=== PATIENT | female | born 1990 | race American Indian/Alaskan Native ===

== ENCOUNTER 2017-11-19 10:26 | Emergency (ER) | payer MEDICAID ==
[2017-11-19 18:46] VITALS: BP 113/69; PULSE 76
--- NOTE | 2017-11-20 09:13 | OBHP ---
Datetime: 11/19/2017 11:00 IP Adm Impression: Term, intrauterine IP Admit Plan: Discharge home IP Admit Plan Other: cerclage removal Admit Comment, IP Provider: 27 yo ega 37.3 presents to [facility] for cerclage removal, which was pawel li at 22 weeks +: fm denies: ctx, lof, vb, CP/SOB/N/V/dysuria pnc: Dr. 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 Cerclage x2 removed with sterile techniques 27 yo IUP 37.3 - cerclage removed -ptl precautions given d/c home case dw Dr. Ashely Ferris MD PGY1 Addendum: I saw on exam patient presentation. Cerclage removed via sterile field under direct visualization. Patient tolerated cerclage removal. Cerclage site hemostatic following removal. Patient observed at labor and delivery approximately 1 hour after removal. Patient without complaints. Both maternal well -being and well-being reassuring. Patient discharged home with labor precautions. Pelvic Type - PN: Adequate Extremities - PN: Normal Abdomen - PN: Normal Back - PN: Normal Breast - PN: Not Done Lungs - PN: Normal Heart - PN: Normal Thyroid - PN: Not Done Neurologic - PN: Normal HEENT - PN: Normal General - PN: Normal FHR - Baseline A Provider: 140 Vital Signs Provider: Reviewed; Within Normal Limits IP Chief Complaint: Other NICHD Variability Prov Fetus A: Moderate 6-25bpm NICHD Accel Fetus A IP Provider: [id number] FHR Category Provider Fetus A: Category I NICHD Decel Fetus A IP Provider: None Genitourinary Exam: Normal DTRs - PN: Not Done
== END 2017-11-19 13:15 | disposition home or self-care (01) ==
LOC: H.EROB2 10:26
DX: O26.873 Cervical shortening, third trimester (principal); Z3A.37 37 weeks gestation of pregnancy

== ENCOUNTER 2017-12-09 21:01 | Inpatient (IN) | payer MEDICAID, OTHER ==
[2017-12-09 21:23] VITALS: BMI 45.3
[2017-12-09] MEDS ORDERED: Lactated Ringer's 1,000 ML IV PRN (21:37)
[2017-12-09] MEDS: Lactated Ringer's 1,000 ML IV SCH (22:15)
[2017-12-09 22:52] LABS: BASO % 0.2 % (0.0-2.0); EOS % 0.6 % (0.0-4.0); HEMOGLOBIN 12.3 g/dL (12.0-16.0); LYMPH # 1.7 K/uL (1.0-4.3); LYMPH % 24.5 % (20.0-40.0); MEAN CELL VOLUME 93.1 fl (81.0-99.0); MEAN CORPUSCULAR HGB CONC 33.3 g/dL (33.0-37.0); MEAN PLATELET VOLUME 8.2 fl (7.2-11.7); MONO # 0.5 K/uL (0.0-0.8); MONO % 7.5 % (0.0-10.0); NEUT # 4.7 K/uL (1.8-7.0); NEUT % 67.2 % (50.0-75.0); NRBC % 0.1 % (0.0-0.0); RBC 3.97 Mil/uL (3.80-5.20); RED CELL DISTRIBUTION WIDTH 13.1 % (11.5-14.5)
[2017-12-10] MEDS: Lactated Ringer's 1,000 ML IV SCH ×3 (06:14→18:30)
[2017-12-10] MEDS ORDERED: Nalbuphine 20 mg/ml Inj (1 ml) IVP PRN (18:35)
--- NOTE | 2017-12-10 23:51 | OBPN ---
Datetime: 12/10/2017 23:48 IP Progress Impression: Reassuring heart rate IP Progress Plan: Continue present management; Induction Contraction Comments Provider: Occasional FHR - Baseline A Provider: 130s IP Progress Note Comment: Continue induction of by mouth Cytotec. Discussed plan with patient AND qu estions answered. Maternal well-being and well-being reassuring at this time. Vital Signs Provider: Reviewed; Within Normal Limits NICHD Accel Fetus A IP Provider: [id number] FHR Category Provider Fetus A: Category I NICHD Variability Prov Fetus A: Moderate 6-25bpm Dilatation, Provider: FT Effacement, Provider: 50 Station, Provider: -3 NICHD Decel Fetus A IP Provider: None
[2017-12-11] MEDS: Lactated Ringer's 1,000 ML IV SCH ×2 (03:23→20:03)
[2017-12-11] MEDS ORDERED: Oxytocin 30 UNITS in Sodium Chloride 0.9% 500 ML IV ONE (12:34)
[2017-12-11] MEDS ORDERED: ceFAZolin IV 2 gm in Dextrose 2 GM/50 ML BAG IVPB ONE (12:37)
--- NOTE | 2017-12-11 12:52 | OBPN ---
Datetime: 12/11/2017 12:46 IP Progress Impression: Reassuring heart rate IP Informed Consent Obtain: Section Delivery; Risks, Benefits and Alternatives Discussed IP Procedures: Sterile Vag Exam IP Progress Plan: Deliver- Section Contraction Comments Provider: irreg FHR - Baseline A Provider: 130s-140s IP Progress Note Comment: Complaints. Patient without any progress despite Cervidil as well as multi ple doses of by mouth Cytotec. Discussed options with patient including continued induction with IV P itocin. Patient opting for delivery at this time due to failed induction of labor. Discusse d with patient risks, benefits, alternatives of surgery. All patient questions answered. Vital Signs Provider: Reviewed; Within Normal Limits NICHD Accel Fetus A IP Provider: [id number] FHR Category Provider Fetus A: Category I NICHD Variability Prov Fetus A: Moderate 6-25bpm Dilatation, Provider: FT Effacement, Provider: 25 Station, Provider: -3 NICHD Decel Fetus A IP Provider: None
[2017-12-11] MEDS ORDERED: ePHEDrine 50 mg/ml Inj ONE (13:08)
[2017-12-11] MEDS ORDERED: Morphine 1 mg/ml preservative-free Inj(Duramorph) ONE (13:08)
[2017-12-11] MEDS ORDERED: Phenylephrine 10 mg/ml Inj ONE (13:08)
[2017-12-11] MEDS ORDERED: Oxycodone/Acetaminophen 5/325 mg Tab PO PRN (17:11)
[2017-12-11] MEDS: Simethicone 80 mg Chewtab PO SCH (22:54)
--- NOTE | 2017-12-11 23:55 | OP ---
PROCEDURE DATE: 12/11/2017 PREOPERATIVE DIAGNOSIS: Failed induction of labor. POSTOPERATIVE DIAGNOSES: Failed induction of labor plus left ovarian dermoid cyst. OPERATION PERFORMED: Primary low-flap transverse section via Pfannenstiel incision, right ovarian cystectomy. OPERATIVE FINDINGS: Viable female with Apgars of 9 and 9 at 1 and 5 minutes respectively. Normal uterus, normal tubes bilaterally, normal left ovary, and right ovary with approximately 5 to 6 cm dermoid cyst. SURGEON: Harsh Lund MD LIQUOR MERCHANT: John Hernandez MD. Dr. Hernandez was present from the beginning of the procedure to the end of procedure. Dr. Hernandez was integral in exposing the surgical field, controlling intraoperative bleeding, and manual delivery of the . TYPE OF ANESTHESIA: Spinal. ANESTHESIA ADMINISTERED BY: John Goyal MD COMPLICATIONS: None. ESTIMATED BLOOD LOSS: 800 mL. FLUIDS: 2500 mL lactated Ringer's. URINE OUTPUT: 200 mL of clear urine at the end of procedure. DESCRIPTION OF PROCEDURE: The patient was taken to the operating room where spinal anesthesia was found to be adequate. The patient was prepped and draped in normal sterile fashion in the dorsal supine position with leftward tilt. A Pfannenstiel skin incision was made with a scalpel. This was carried down through to the underlying layer of fascia with the scalpel. Midline defect was made in the fascial layer with a scalpel. The fascial incision was then extended bilaterally sharply with curved Denson scissors. The fascial layer was from the underlying rectus muscles both bluntly and sharply with curved Denson scissors. The peritoneum was then identified, tented up with Aurora clamps x2, and entered sharply with Metzenbaum scissors. This peritoneal incision was then extended superiorly and inferiorly with good visualization of the urinary bladder. Bladder blade was inserted into the abdomen. The vesicouterine peritoneum was then identified, tented up with Aurora clamps x2, and entered sharply with Metzenbaum scissors. This peritoneal incision was then extended bilaterally with Metzenbaum scissors. The bladder flap was created digitally. The Alma retractors were placed over the urinary bladder. The uterus was incised with scalpel. The uterine incision was extended bilaterally bluntly. The 's head was delivered atraumatically. Nose and mouth were suctioned with bulb suction. Nuchal cord x2 reduced. True knot was observed in the umbilical cord. The cord was clamped and cut. The infant was handed off to awaiting assembler knife. The placenta was removed manually. The uterus was cleared of all clots and debris. The uterine incision was repaired with 0 Vicryl in a running, locked fashion. A second layer of the same suture was used to imbricate the first and to obtain an excellent hemostasis. Reinspection of the uterine incision proved excellent hemostasis. The abdomen and pelvis were irrigated with copious amounts of warm normal saline. A 5 to 6 cm cyst was seen on the right ovary. An approximately 4 cm incision was placed on the ovarian surface with the scalpel. The ovarian cyst was removed bluntly and sharply from the ovary with Metzenbaum scissors. The ovarian cyst was removed intact. After removal of the ovarian cyst, the ovarian tissue was imbricated and suture ligated with 2-0 chromic. After suture ligating right ovary, the ovary was found to be hemostatic. Reinspection of the right ovary and uterine incision proved hemostasis. All instruments were removed from the patient. The peritoneal layer was closed with a running stitch of 2-0 chromic. The rectus muscles were reapproximated with a running stitch of 2-0 chromic. The fascial layer was closed with a running stitch of 0 Vicryl. Subcutaneous tissue was closed with a running stitch of 3-0 plain. The skin was closed with a subcutaneous stitch of 3-0 Vicryl. The patient tolerated the procedure well. All sponge count, lap count, and needle counts were correct x2. The patient was given 3 g of Ancef just prior to the beginning of the procedure. There were no complications. The patient was taken to the recovery room in awake and stable condition. Harsh Lund MD TIFFANY
[2017-12-12] MEDS: Lactated Ringer's 1,000 ML IV SCH (03:48)
[2017-12-12 07:24] LABS: HEMOGLOBIN 10.7 g/dL (12.0-16.0); MEAN CELL VOLUME 93.1 fl (81.0-99.0); MEAN CORPUSCULAR HEMOGLOBIN 32.3 pg (27.0-31.0); MEAN CORPUSCULAR HGB CONC 34.7 g/dL (33.0-37.0); RBC 3.3 Mil/uL (3.80-5.20); RED CELL DISTRIBUTION WIDTH 13.1 % (11.5-14.5); WHITE BLOOD COUNT 10.1 K/uL (4.8-10.8)
[2017-12-12] MEDS: Simethicone 80 mg Chewtab PO SCH ×3 (09:54→19:54)
[2017-12-13] MEDS: Oxycodone/Acetaminophen 5/325 mg Tab PO PRN ×3 (02:13→16:44)
[2017-12-13] MEDS: Simethicone 80 mg Chewtab PO SCH ×4 (05:24→22:00)
--- NOTE | 2017-12-13 08:00 | OBPPN ---
Datetime: 12/13/2017 07:55 PP Pain Prov: Within normal limits PP Nausea Prov: Denies PP Flatus Prov: Yes PP BM Prov: No PP Abdomen/Uterus Prov: Normal PP Lochia Prov: Normal PP Extremities Prov: Normal PP C/S Incision Prov: Normal PP Progress Prov: Normal PP Comments Phys Exam Prov: Incision intact w/ steri strips PP Impression Prov: Normal progression PP Plan Prov: Continue present management PP Progress Note Prov: POD 2 s/p c/s for failed induction for post-dates Continue current management Vital Signs Provider PP: Reviewed; Within Normal Limits
[2017-12-14] MEDS: Oxycodone/Acetaminophen 5/325 mg Tab PO PRN ×2 (04:42→08:39)
[2017-12-14] MEDS: Simethicone 80 mg Chewtab PO SCH ×2 (04:43→10:00)
--- NOTE | 2017-12-14 11:08 | OBDCSUM ---
Datetime: 12/14/2017 11:06 Discharged to, Provider: Home Follow up at, Provider: OB Discharge Diagnosis, Provider: Term Delivered Discharge Time: 12/14/2017 11:06 Follow up in weeks, Provider: 1 wk, 6 wks
--- NOTE | 2017-12-14 11:09 | OBPPN ---
Datetime: 12/14/2017 11:04 PP Pain Prov: Within normal limits PP Nausea Prov: Denies PP Flatus Prov: Yes PP Breasts Prov: Normal PP Heart Prov: Normal PP Lungs Prov: Normal PP Abdomen/Uterus Prov: Normal PP Lochia Prov: Normal PP Vulva/Perineum Prov: Normal PP CVA Tenderness Prov: Normal PP Extremities Prov: Normal PP Impression Prov: Normal progression PP Plan Prov: Discharge PP Progress Note Prov: Patient denies CP, no SOB, n/v, tolerating PO diet, ambulating/voiding well, mild lochia, abodminal pain tolerable with meds A/P POD #3 1. Discharge home 2. Discharge instructions reviewed IP PP Procedures: None Vital Signs Provider PP: Reviewed; Within Normal Limits
[2017-12-14 18:35] VITALS: BP 122/76; PULSE 72; RESP 20; TEMP 98.3; O2SAT 98
== END 2017-12-14 13:27 | disposition home or self-care (01) | DRG 371 ==
LOC: H.L&D 21:23 → H.OB/GYN 12-11 18:49
PROVIDERS: ADMIT Obstetrics & Gynecology Gynecology; ATTEND Obstetrics & Gynecology Gynecology
PROC: 4A1HXCZ Monitoring of Products of Conception, Cardiac Rate, External Approach (ICD-10-PCS; 2017-12-09)
PROC: 10D00Z1 Extraction of Products of Conception, Low, Open Approach (ICD-10-PCS; principal; 2017-12-11)
DX: O48.0 Post-term pregnancy (principal); O61.9 Failed induction of labor, unspecified; O34.83 Maternal care for other abnormalities of pelvic organs, third trimester; Z37.0 Single live birth; O69.81X0 Labor and delivery complicated by cord around neck, without compression, not applicable or unspecified; Z3A.40 40 weeks gestation of pregnancy